=== PATIENT | female | born 1945 | race American Indian/Alaskan Native ===

== ENCOUNTER 2016-07-03 20:07 | Emergency (ER) | payer MEDICARE ==
[2016-07-03] MEDS ORDERED: REGLAN IV ONE (20:48)
[2016-07-03] MEDS ORDERED: BENADRYL IV ONE (20:48)
[2016-07-03 20:56] LABS: Basophils % (Auto) 0.6 % (0.0-1.8); Eosinophils % (Auto) 3.4 % (0.0-4.3); Hematocrit 41.5 % (30.3-42.9); Hemoglobin 14.1 gm/dl (10.1-14.3); Mean Corpuscular HGB Conc 34 % (30-34); Mean Corpuscular Hemoglobin 29 pg (28-32); Mean Corpuscular Volume 86 fl (79-97); Platelet Count 172 K/mm3 (140-440); White Blood Count 7.8 K/mm3 (4.5-11.0)
--- NOTE | 2016-07-03 21:00 | Emergency Department Report ---
ED Headache HPI - General Chief Complaint: Headache Stated Complaint: POSS STROKE Time Seen by Provider: 07/03/16 20:43 Source: patient Exam Limitations: no limitations - History of Present Illness Initial Comments: 71 yo female with a past medical history hypertension and left carotid aneurysm presents to the hospital complains of severe sudden onset headache without prior to arrival. Patient is in the right parietal area rated initially 10/10 intensity. Patient took an extra dose of her amlodipine and benazapril prior to arrival (she typically only takes once a day in the morning). She did not check her BP at home. Headache has gradually subsided and now reported 3/10 in intensity. Patient did not take any pain medication prior to arrival. She complains of blurred vision but no recent nausea, vomiting, focal weakness, focal numbness. Pain radiates down to the right side of the neck the patient denies neck stiffness or worsening pain with movement. Patient denies any anticoagulatant or aspirin use. 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 Recommendation at that time was observation and close monitoring however, patient may need coil embolization or stenting in the future. Allergies/Adverse Reactions: Allergies latex Adverse Reaction (Verified 07/03/16 21:25) Rash Penicillins Adverse Reaction (Verified 07/03/16 21:24) Swelling Sulfa (Sulfonamide Antibiotics) Adverse Reaction (Verified 07/03/16 21:25) Rash Home Medications: Ambulatory Orders Benazepril (Nf) 40 mg PO DAILY 07/03/16 HYDROcodone/APAP 5-325 [[place] 5/325] 1 each PO Q6HR PRN #20 tablet 07/03/16 amLODIPine 10 mg PO DAILY 07/03/16 ED Review of Systems ROS: Stated complaint: POSS STROKE Other details as noted in HPI Comment: All other systems reviewed and negative Other: Constitutional: No fevers chills Eyes: as per hpi ENT: No ear pain or throat pain Neck: Denies pain Respiratory: Denies cough wheezing shortness of breath Cardiovascular: Denies chest pain, palpitations, syncope GI: Denies abdominal pain, nausea, vomiting, diarrhea : Denies dysuria Musculoskeletal: Denies back pain Skin: Denies rash, lesions, erythema Neurologic: as per hpi Psychiatric: Denies suicidal ideation, hallucinations ED Past Medical Hx - Past Medical History Hx Hypertension: Yes Additional medical history: Left internal carotid aneurysm diagnosed in 2009 ( left internal carotid artery aneurysm, 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) - Surgical History Additional Surgical History: Tubal Ligation, Hysterectomy, Thryroid Nodule Removal, Moles left Wrist removal - Social History Smoking Status: Current Every Day Smoker Substance Use Type: None - Medications Home Medications: Home Medications Medication Instructions Recorded Confirmed Last Taken Type Benazepril (Nf) 40 mg PO DAILY 07/03/16 07/03/16 Unknown History HYDROcodone/APAP 5-325 [[place] 1 each PO Q6HR PRN #20 tablet 07/03/16 Unknown Rx 5/325] amLODIPine 10 mg PO DAILY 07/03/16 07/03/16 Unknown History ED Physical Exam - General Limitations: No Limitations - Other Other exam information: General: No limitations, patient is alert in no acute distress Head exam: Atraumatic, normocephalic Eyes exam: Normal appearance, pupils equal reactive to light, extraocular movements intact ENT: Moist mucous membrane, normal oropharynx Neck exam: Normal inspection, full range of motion, no meningismus nontender Respiratory exam: Clear to auscultation bilateral, no wheezes, rales, crackles Cardiovascular: Normal rate and rhythm, normal heart sounds Abdomen: Soft, nondistended, and nontender, with normal bowel sounds, no rebound, or guarding Extremity: Full range of motion normal inspection no deformity Back: Normal Inspection, full range of motion, no tenderness Neurologic: Alert, oriented x3, cranial nerves intact, no motor or sensory deficit Psychiatric: normal affect, normal mood Skin: Warm, dry, intact ED Course Vital Signs 07/03/16 07/03/16 07/03/16 20:16 20:43 20:45 Temperature 98.5 F 99.4 F Pulse Rate 132 H 110 H 104 H Respiratory 18 12 Rate Blood Pressure 186/100 Blood Pressure 186/100 154/92 [Left] O2 Sat by Pulse 100 100 97 Oximetry 07/03/16 07/03/16 07/03/16 21:00 21:30 22:13 Temperature Pulse Rate 103 H 93 H Respiratory 15 12 12 Rate Blood Pressure 152/95 161/99 152/86 Blood Pressure [Left] O2 Sat by Pulse 98 97 97 Oximetry 07/03/16 07/03/16 22:30 23:00 Temperature Pulse Rate Respiratory 11 L 12 Rate Blood Pressure 134/78 127/94 Blood Pressure [Left] O2 Sat by Pulse 96 96 Oximetry ED Medical Decision Making - Lab Data Result diagrams: 07/03/16 20:41 07/03/16 20:41 Lab Results 07/03/16 07/03/16 Range/Units 20:41 20:41 WBC 7.8 (4.5-11.0) K/mm3 RBC 4.80 (3.65-5.03) M/mm3 Hgb 14.1 (10.1-14.3) gm/dl Hct 41.5 (30.3-42.9) % MCV 86 (79-97) fl MCH 29 (28-32) pg MCHC 34 (30-34) % RDW 14.0 (13.2-15.2) % Plt Count 172 (140-440) K/mm3 Lymph % (Auto) 28.5 (13.4-35.0) % [place] % (Auto) 8.1 H (0.0-7.3) % Eos % (Auto) 3.4 (0.0-4.3) % Baso % (Auto) 0.6 (0.0-1.8) % Lymph # 2.2 (1.2-5.4) K/mm3 [place] # 0.6 (0.0-0.8) K/mm3 Eos # 0.3 (0.0-0.4) K/mm3 Baso # 0.0 (0.0-0.1) K/mm3 Seg Neutrophils % 59.4 (40.0-70.0) % Seg Neutrophils # 4.6 (1.8-7.7) K/mm3 Sodium 141 (137-145) mmol/L Potassium 3.7 (3.6-5.0) mmol/L Chloride 104.4 (98-107) mmol/L Carbon Dioxide 22 (22-30) mmol/L Anion Gap 18 mmol/L BUN 10 (7-17) mg/dL Creatinine 0.9 (0.7-1.2) mg/dL Estimated GFR > 60 ml/min BUN/Creatinine Ratio 11.11 % Glucose 94 (65-100) mg/dL Calcium 8.7 (8.4-10.2) mg/dL - EKG Data -: EKG Interpreted by Me (sinus tach 120, pac) - EKG Data When compared to previous EKG there are: changes noted (compared to 09/21/11) - Radiology Data Radiology results: report reviewed CT head noncontrast: No acute findings. Chronic atrophy and microvascular angiopathy CT angiogram head: Left internal carotid intracranial aneurysm measuring 4 x 4. No acute findings. CT angiogram neck: unremarkable - Medical Decision Making Patient feels better after receiving morphine but headache was 3/10 in intensity prior to receiving medication. CT does not show any acute bleeding. CT also confirms left-sided carotid aneurysm which is unlikely the cause of her current symptoms on the right. She'll be encouraged to follow-up with her physicians for further evaluation and monitoring of her left carotid. Patient was prescribed medication for pain and encouraged to monitor her blood pressure at home. Since previous vascular workup was performed in [place] she does not have a local physician. She will be provided follow-up with vascular surgeon and encouraged to follow-up with her primary care doctor - Differential Diagnosis ich, mass,sah, htn emergency Critical Care Time: No Critical care attestation.: If time is entered above; I have spent that time in minutes in the direct care of this critically ill patient, excluding procedure time. ED Disposition Clinical Impression: HTN (hypertension), Headache Disposition: DISCHARGED TO HOME OR SELFCARE Is pt being admited?: No Does the pt Need Aspirin: No Condition: Stable Instructions: Hypertension (ED), Acute Headache (ED) Additional Instructions: Take the medication as prescribed. Return if symptoms worsen. Monitor your BP at home. Prescriptions: HYDROcodone/APAP 5-325 [[place] 5/325] 1 each PO Q6HR PRN #20 tablet PRN Reason: Pain Referrals: ULICES MCLEOD MD [Primary Care Provider] - 2-3 Days DOUGLAS LEIGH MD [Staff Physician] - 3-5 Days Time of Disposition: 23:47
[2016-07-03 21:11] LABS: Anion Gap 18 mmol/L; BUN/Creatinine Ratio 11.11; Blood Urea Nitrogen 10 mg/dL (7-17); Calcium 8.7 mg/dL (8.4-10.2); Carbon Dioxide 22 mmol/L (22-30); Chloride 104.4 mmol/L (98-107); Glucose 94 mg/dL (65-100); Potassium 3.7 mmol/L (3.6-5.0); Sodium 141 mmol/L (137-145)
[2016-07-03] MEDS ORDERED: ZOFRAN IV ONE (21:11)
[2016-07-03] MEDS ORDERED: MORPHINE IV ONE (21:11)
[2016-07-03] MEDS ORDERED: NACL ONE (21:15)
--- NOTE | 2016-07-03 22:10 | Cat Scan Report ---
FINAL REPORT EXAM: CT HEAD/BRAIN WO CON HISTORY: headache TECHNIQUE: CT imaging is acquired through the brain without contrast. Transaxial reformations are provided. PRIORS: None. FINDINGS: Ventricles and CSF spaces are proportionately enlarged, consistent with parenchymal atrophy. Scattered deep and subcortical white matter hypodense foci are confluent in some areas and are compatible with microvascular angiopathy. No acute intracranial hemorrhage or mass effect. Calvarium and superficial scalp are intact. Partially visualized paranasal sinuses are clear. Mastoids are clear. IMPRESSION: No acute intracranial abnormality. Consider additional imaging for worsening/persistent symptoms. There are chronic sequela of atrophy and microvascular angiopathy.
--- NOTE | 2016-07-03 23:03 | Cat Scan Report ---
FINAL REPORT EXAM: CT ANGIO NECK HISTORY: sudden headache, hx of left carotid aneurysm TECHNIQUE: CT images are acquired through the neck in angiographic phase following intravenous administration of contrast. Transaxial coronal and sagittal reformations are provided. PRIORS: Head CT and CT head angiogram of the same date FINDINGS: Three vessel aortic arch The left common and extracranial internal carotid artery are normal in caliber. The right common and extracranial internal carotid artery are normal in caliber. Vertebral arteries are normal course and caliber. No periarticular ill fluid or stranding is well as no wall abnormality or intraluminal dissection flap identified within the major arteries of the neck. Streak artifact from dental hardware focally compromises the examination. The mucosal spaces of the neck are unremarkable. Scattered generally mild sequela of cervical intervertebral disc degeneration. No acute fracture. Imaged portions of the lungs are remarkable for centrilobular emphysema. IMPRESSION: Unremarkable CT neck angiogram.
--- NOTE | 2016-07-03 23:20 | Cat Scan Report ---
FINAL REPORT EXAM: CT ANGIO HEAD HISTORY: Right-sided parietal region sudden headache, hx of left carotid aneurysm TECHNIQUE: CT images are acquired through the head in angiographic phase following intravenous administration of contrast. Transaxial , coronal and sagittal reformations including maximal intensity projections are provided. PRIORS: CT neck angiogram and noncontrast head CT the same date FINDINGS: There is ectasia and irregularity at the intra canalicular and supraclinoid left internal carotid artery. A medially projecting aneurysm measures approximately 4 x 4 millimeters on axial series 3, image 177. No enhancement of the cavernous sinus to suggest fistula. No contrast extravasation or fluid adjacent to the affected artery. The [place] is intact. Anterior and posterior communicating arteries are normal in caliber. Anterior posterior circulation of brain is otherwise intact normal in caliber. Vertebrobasilar arteries are unremarkable. Normal spherical shape of the globes. Retro bulbar fat is unremarkable. Paranasal sinuses and mastoid air cells are without significant abnormality. IMPRESSION: Left internal carotid intracranial aneurysm measures approximately 4 x 4 millimeters. No acute associated findings identified. Remaining intracranial vasculature is within normal limits. Dr. Alvarado discussed findings with Dr. Valverde at [address] following the examination.
[2016-07-04 01:06] VITALS: BP 140/83
== END 2016-07-04 00:12 | disposition home or self-care (01) ==
LOC: ED 20:07
DX: I10 Essential (primary) hypertension (principal); R51 Headache; F17.200 Nicotine dependence, unspecified, uncomplicated; Z88.2 Allergy status to sulfonamides; Z88.0 Allergy status to penicillin; Z91.040 Latex allergy status
CPT/HCPCS: 36415; 70450; 70496; 70498; 80048; 85025; 93005; 93010; 96374; 96375; 99284; J2270; J2405; Q9967; J1200; J2765